=== PATIENT | female | born 1975 | race Caucasian/White ===

== ENCOUNTER 2017-08-03 11:58 | Inpatient (IN) | payer BC, SELFPAY ==
[~2017-08-03] VITALS: Ht 170.2 cm; Wt 89.4 kg
[2017-08-24 14:52] LABS: Hematocrit 37.3 % (33.0-51.0); Mean Corpuscular HGB 28.6 pg (26.0-34.0); Mean Corpuscular HGB Conc 32.2 g/dL (31.5-36.5); Mean Corpuscular Volume 89 fL (80-100); Mean Platelet Volume 10.4 fL (9.1-12.4); Platelet Count 269 K/mm3 (150-400); RDW Coefficient Variation 13.1 % (11.7-14.2); RDW Standard Deviation 42.5 fL (35.1-46.3); White Blood Cell Count 5.97 K/mm3 (4.00-11.30)
[2017-08-25] MEDS ORDERED: FERROUS SU220 MG/51 PO (13:35)
[2017-08-25] MEDS ORDERED: Omeprazole20 M1 PO (13:36)
[2017-08-25] MEDS ORDERED: ALBU90OI INH (13:38)
[2017-08-25] MEDS ORDERED: Hydrocodone-Ap1 EA23 PO (13:40)
[2017-08-27 05:28] LABS: BASOPHILS ABSOLUTE AUTO 0.02 K/mm3 (0.00-0.23); BASOPHILS PERCENT AUTO 0 % (0-2); EOSINOPHILS ABSOLUTE AUTO 0.04 K/mm3 (0.00-0.68); EOSINOPHILS PERCENT AUTO 1 % (0-6); Hematocrit 31.9 % (33.0-51.0); Hemoglobin 10.3 g/dL (11.5-16.0); IMMATURE GRAN ABSOLUTE AUTO 0.02 K/mm3 (0.00-0.10); IMMATURE GRAN PERCENT AUTO 0 % (0-1); LYMPHOCYTES ABSOLUTE AUTO 1.64 K/mm3 (0.84-5.20); LYMPHOCYTES PERCENT AUTO 19 % (21-46); MONOCYTES ABSOLUTE AUTO 0.72 K/mm3 (0.16-1.47); MONOCYTES PERCENT AUTO 8 % (4-13); Mean Corpuscular HGB 29.5 pg (26.0-34.0); Mean Corpuscular HGB Conc 32.3 g/dL (31.5-36.5); Mean Corpuscular Volume 91 fL (80-100); Mean Platelet Volume 10.2 fL (9.1-12.4); NEUTROPHILS ABSOLUTE AUTO 6.38 K/mm3 (1.96-9.15); NEUTROPHILS PERCENT AUTO 72 % (41-73); Platelet Count 206 K/mm3 (150-400); RDW Coefficient Variation 13.1 % (11.7-14.2); RDW Standard Deviation 42.9 fL (35.1-46.3); Red Blood Cell Count 3.49 M/mm3 (3.80-5.20); White Blood Cell Count 8.82 K/mm3 (4.00-11.30)
[2017-08-28] MEDS ORDERED: Milk Of Ma400 MG/5 M PO (13:43)
[2017-08-28] MEDS ORDERED: IBUP800 PO (13:43)
[2017-08-28] MEDS ORDERED: Percocet 5-3251 EACH PO ×2 (13:44→13:46)
[2017-08-28] MEDS ORDERED: DOCU100 PO (13:47)
[2017-08-28] MEDS ORDERED: PROM25 PO (13:47)
[2017-08-28] MEDS ORDERED: SIME80CH PO (13:47)
== END 2017-08-28 15:12 | disposition home or self-care (01) | DRG 743 ==
LOC: SURS 08-26 05:58 → PRE IP 08-26 09:00 → SURS 08-26 11:34
PROVIDERS: Obstetrics & Gynecology
PROC: 0UT90ZZ Resection of Uterus, Open Approach (ICD-10-PCS; principal; 2017-08-26 07:30)
PROC: 0UT70ZZ Resection of Bilateral Fallopian Tubes, Open Approach (ICD-10-PCS; 2017-08-26 07:30)
DX: D25.0 Submucous leiomyoma of uterus (principal); N92.1 Excessive and frequent menstruation with irregular cycle; E66.9 Obesity, unspecified; Z68.30 Body mass index [BMI] 30.0-30.9, adult; Z79.899 Other long term (current) drug therapy
CPT/HCPCS: 36415; 84703; 85025; 85027; 86850; 86900; 86901; 88307; 94640; 94760; J0690; J1100; J1170; J1885; J2250; J2270; J2405; J2550; J2710; J3010; J7120

== ENCOUNTER 2021-03-11 07:29 | Day surgery (SDC) | payer BC ==
[~2021-03-11] VITALS: Ht 165.1 cm; Wt 89.3 kg
[~2021-03-11 07:29] MED LIST: ALBU90OI INH; DOCU100 PO; FERROUS SU220 MG/51 PO; FERSU300 PO; Hydrocodone-Ap1 EA23 PO; IBUP800 PO; Milk Of Ma400 MG/5 M PO; Omeprazole20 M1 PO; PROM25 PO; Percocet 5-3251 EACH PO; SIME80CH PO
[2021-03-11] MEDS ORDERED: CYCLOBENZAPRINE5 MG PO (07:53)
[2021-03-11] MEDS ORDERED: HYDROCODONE-AC1 EA15 PO (07:53)
[2021-03-11] MEDS ORDERED: ESTRADIOL (TWI1 EAC3 TD (07:53)
--- NOTE | 2021-03-11 08:46 | NUR ---
03/11/21 0846 Traci Nam (Destinee BEDSIDE INJECTION PERFORMED BY DR. OAKLEY WITH SONOSITE. 2MG VERSED IVP ADMINISTERED BY DR. OAKLEY PRIOR TO INJECTION OF 10ML 1% LIDOCIANE WITH EPI 1:100,000. PT TOLERATED WELL, NO COMPLICATIONS.
--- NOTE | 2021-03-11 08:56 | NUR ---
03/11/21 0856 Saadia Miranda ARMS SECURED ON PADDED ARM BOARDS
== END 2021-03-11 09:40 | disposition home or self-care (01) ==
LOC: ORSCSDS 07:29
PROVIDERS: Orthopaedic Surgery
PROC: 01N54ZZ Release Median Nerve, Percutaneous Endoscopic Approach (ICD-10-PCS; principal; 2021-03-11 08:45)
DX: G56.01 Carpal tunnel syndrome, right upper limb (principal); K21.9 Gastro-esophageal reflux disease without esophagitis; J45.909 Unspecified asthma, uncomplicated; E66.9 Obesity, unspecified; Z68.32 Body mass index [BMI] 32.0-32.9, adult; Z79.899 Other long term (current) drug therapy
CPT/HCPCS: J2250; J7120

== ENCOUNTER 2022-05-05 10:21 | Day surgery (SDC) | payer BC, OTHER ==
[~2022-05-05] VITALS: Ht 170.2 cm; Wt 92.4 kg
[~2022-05-05 10:21] MED LIST changes: +CYCLOBENZAPRINE5 MG PO; +ESTRADIOL (TWI1 EAC3 TD; +HYDROCODONE-AC1 EA15 PO
--- NOTE | 2022-05-05 11:00 | NUR ---
05/05/22 1100 Kay Cali TWO ATTEMPTS AT IV. FIRST ATTEMPT AT IV BY SHANNON IN L HAND INFILTRATED. SECOND ATTEMPT AT IV IN R HAND BY RN BY SHANNON.
--- NOTE | 2022-05-05 13:34 | NUR ---
05/05/22 1334 Tomas Barnard 53 AND 55 USED FOLLOWING BALLON DILATION AT 20
== END 2022-05-05 13:20 | disposition home or self-care (01) ==
LOC: ORSCSDS 10:21
PROVIDERS: Internal Medicine Gastroenterology
PROC: 0DB58ZX Excision of Esophagus, Via Natural or Artificial Opening Endoscopic, Diagnostic (ICD-10-PCS; principal; 2022-05-05 12:00)
PROC: 0D758ZZ Dilation of Esophagus, Via Natural or Artificial Opening Endoscopic (ICD-10-PCS; principal; 2022-05-05 12:00)
PROC: 0DBK8ZX Excision of Ascending Colon, Via Natural or Artificial Opening Endoscopic, Diagnostic (ICD-10-PCS; principal; 2022-05-05 12:00)
DX: R13.10 Dysphagia, unspecified (principal); K21.9 Gastro-esophageal reflux disease without esophagitis; K59.00 Constipation, unspecified; K22.2 Esophageal obstruction; K44.9 Diaphragmatic hernia without obstruction or gangrene; K57.30 Diverticulosis of large intestine without perforation or abscess without bleeding; J45.909 Unspecified asthma, uncomplicated; E78.5 Hyperlipidemia, unspecified; E66.9 Obesity, unspecified; Z68.33 Body mass index [BMI] 33.0-33.9, adult; Z79.899 Other long term (current) drug therapy
CPT/HCPCS: 88305; C1726; J2250; J2704; J7120

== ENCOUNTER 2022-07-11 17:47 | Emergency (ER) | payer BC, OTHER ==
[~2022-07-11] VITALS: Ht 170.2 cm; Wt 93.9 kg
[2022-07-11 20:34] LABS: Albumin, Blood 3.6 g/dL (3.4-5.0); Albumin/Globulin Ratio 1.1 (0.8-1.8); Bilirubin, Total 0.2 mg/dL (0.1-1.0); Bun/Creatinine Ratio 17.3 (12.0-20.0); Calcium, Blood 8.8 mg/dL (8.5-10.1); Creatinine, Blood 0.58 mg/dL (0.40-1.00); Globulin, Blood 3.4 g/dL (2.2-4.0); Potassium, Blood 3.9 mmol/L (3.5-5.5); Thyroid Stimulating Hormone 2.85 uIU/mL (0.360-4.800)
[2022-07-11 21:09] LABS: BASOPHILS ABSOLUTE AUTO 0.05 K/mm3 (0.00-0.23); BASOPHILS PERCENT AUTO 1 % (0-2); EOSINOPHILS ABSOLUTE AUTO 0.12 K/mm3 (0.00-0.68); EOSINOPHILS PERCENT AUTO 2 % (0-6); Hematocrit 35.7 % (33.0-51.0); Hemoglobin 12.2 g/dL (11.5-16.0); IMMATURE GRAN ABSOLUTE AUTO 0.01 K/mm3 (0.00-0.10); IMMATURE GRAN PERCENT AUTO 0 % (0-1); LYMPHOCYTES PERCENT AUTO 26 % (21-46); MONOCYTES ABSOLUTE AUTO 0.49 K/mm3 (0.16-1.47); MONOCYTES PERCENT AUTO 6 % (4-13); Mean Corpuscular HGB 30.4 pg (26.0-34.0); Mean Corpuscular HGB Conc 34.2 g/dL (31.5-36.5); Mean Corpuscular Volume 89 fL (80-100); Mean Platelet Volume 9.5 fL (9.1-12.4); NEUTROPHILS ABSOLUTE AUTO 5.25 K/mm3 (1.96-9.15); NEUTROPHILS PERCENT AUTO 66 % (41-73); Platelet Count 241 K/mm3 (150-400); RDW Coefficient Variation 12.4 % (11.7-14.2); RDW Standard Deviation 40.9 fL (35.1-46.3); Red Blood Cell Count 4.01 M/mm3 (3.80-5.20); White Blood Cell Count 8.02 K/mm3 (4.00-11.30)
== END 2022-07-11 22:31 | disposition home or self-care (01) ==
LOC: ER 17:47
PROVIDERS: Emergency Medicine
DX: R00.2 Palpitations (principal); F41.9 Anxiety disorder, unspecified; J45.909 Unspecified asthma, uncomplicated; Z79.899 Other long term (current) drug therapy
CPT/HCPCS: 36415; 80053; 84443; 85025; 93005; 93010

== ENCOUNTER 2022-11-16 06:43 | Day surgery (SDC) | payer BC, OTHER ==
[~2022-11-16] VITALS: Ht 170.2 cm; Wt 99.0 kg
[2022-11-16] MEDS ORDERED: SERT100 (07:04)
[2022-11-16 08:42] VITALS: BP 113/7
== END 2022-11-16 08:57 | disposition home or self-care (01) ==
LOC: ORSCSDS 06:43
PROVIDERS: Specialist
PROC: 0DB58ZX Excision of Esophagus, Via Natural or Artificial Opening Endoscopic, Diagnostic (ICD-10-PCS; principal; 2022-11-16 08:00)
DX: K20.90 Esophagitis, unspecified without bleeding (principal); K21.9 Gastro-esophageal reflux disease without esophagitis; K44.9 Diaphragmatic hernia without obstruction or gangrene; E78.5 Hyperlipidemia, unspecified; J45.909 Unspecified asthma, uncomplicated; K57.30 Diverticulosis of large intestine without perforation or abscess without bleeding; K59.00 Constipation, unspecified; Z79.899 Other long term (current) drug therapy
CPT/HCPCS: 88305; J2704; J7120